=== PATIENT | male | born 1950 ===

== ENCOUNTER 2021-04-23 05:48 | Observation (INO) ==
[2021-04-23] MEDS ORDERED: Buffered Lidocaine 1% SYRIN 1 ml INTRADERM ONE (06:00)
[2021-04-23] MEDS ORDERED: Lactated Ringers 1000 ml BAG 1,000 ML IV SCH (06:00)
[2021-04-23] MEDS ORDERED: ceFAZolin 1 GM ADVAN 1 GM ADDV.VIAL IVPB ONE (06:15)
[2021-04-23 06:44] LABS: ABS Lymphocytes 2.1 10^3/ul (1.0-4.8); ABS Monocytes 0.8 10^3/ul (0-0.8); ABS Neutrophils 4.5 10^3/ul (1.5-7.7); Activated Partial Thrombo Time 33.8 seconds (26.0-38.0); Eosinophil % 0.3 %; Hematocrit 50 % (42-52); Hemoglobin 16.6 g/dL (14.0-18.0); INR 1.24 (0.86-1.15); Lymphocyte % 27.7 %; Mean Corpuscular HGB Conc 33 g/dL (31-36); Mean Corpuscular Hemoglobin 30 pg (27-31); Mean Corpuscular Volume 89 fL (80-94); Mean Platelet Volume 5.9 fL (7.4-10.4); Nucleated Red Blood Cells % 0.1; Platelet Count 342 10^3/uL (150-450); Red Blood Count 5.63 10^6 /uL (4.18-5.48); Red Cell Distribution Width 14 % (10-15); White Blood Count 7.4 10^3/uL (3.5-10.8)
[2021-04-23 06:48] LABS: Albumin 4.3 g/dL (3.2-5.2); Albumin/Globulin Ratio 1.2 (1-3); Calcium 9.8 mg/dL (8.6-10.3); Globulin 3.6 g/dL (2-4); Potassium 4.2 mmol/L (3.5-5.0); Total Bilirubin 0.5 mg/dL (0.2-1.0); Total Protein 7.9 g/dL (6.4-8.9); eGFR CKD-EPI 62.1 (>60)
[2021-04-23] MEDS ORDERED: Dexamethasone IV 4 MG/ML VIAL 1 ml VIAL ONE (07:07)
[2021-04-23] MEDS ORDERED: Midazolam 2 mg/2 ml VIAL 1 mg/ml 2 ml VIAL (2 mg) ONE (07:07)
[2021-04-23] MEDS ORDERED: Lidocaine 2% PF 5 ML VIAL ONE (07:07)
[2021-04-23] MEDS ORDERED: Rocuronium 50 mg VIAL 10 mg/ml 5 ml VIAL (50 mg) ONE (07:07)
[2021-04-23] MEDS ORDERED: Bupivacaine 0.5% W/EPI SDV 10 ML VIAL INJ ONE ×2 (07:07)
[2021-04-23] MEDS ORDERED: Vancomycin 1,000 MG VIAL ONE (07:07)
[2021-04-23] MEDS ORDERED: Ondansetron 4 mg VIAL 2 MG/ML 2 ml VIAL ONE (07:07)
[2021-04-23] MEDS ORDERED: fentaNYL 100 mcg/2 ml 50 MCG/ML VIAL ONE (07:07)
[2021-04-23] MEDS ORDERED: Propofol 10 MG/ML 20 ML BTL ONE ×3 (07:07→07:17)
[2021-04-23] MEDS ORDERED: Morphine PF AMP (0.5MG/ML) 5 MG/10 ML AMP ONE (07:17)
[2021-04-23] MEDS ORDERED: Sevoflurane BOTTLE ONE (08:14)
[2021-04-23] MEDS ORDERED: EPHEDrine (Pressors) 50 MG/ML VIAL ONE ×2 (08:24→08:31)
[2021-04-23] MEDS ORDERED: Ondansetron 4 mg VIAL 2 MG/ML 2 ml VIAL IV PRN ×2 (09:00→12:06)
[2021-04-23] MEDS ORDERED: DiMENhydriNATE IV 50 mg/ml 1 ml VIAL IV PUSH PRN (09:00)
[2021-04-23] MEDS ORDERED: HYDROcodone/ACETAMIN 5/325 mg TAB PO PRN (09:00)
[2021-04-23] MEDS ORDERED: Glycopyrrolate IV 0.2 MG/ML 1 ML VIAL ONE (10:03)
[2021-04-23] MEDS ORDERED: Acetaminophen IV 1 GM/100ML 100 ML IV ONE (10:34)
[2021-04-23] MEDS ORDERED: Magnesium Hydroxide LIQ 30 ML UDC PO PRN (12:06)
[2021-04-23] MEDS ORDERED: diPHENhydraMINE IV 50 MG/ML 1 ml VIAL (BENADRYL) IV PRN (12:06)
[2021-04-23] MEDS ORDERED: diPHENhydraMINE 25 mg TAB PO PRN (12:06)
[2021-04-23] MEDS ORDERED: Ondansetron ODT 4 mg TAB 4 MG TAB PO PRN (12:06)
[2021-04-23] MEDS ORDERED: Lactulose 30 ml UDC PO PRN (12:06)
[2021-04-23] MEDS ORDERED: Naloxone 0.4 mg VIAL 0.4 mg/ml 1 ml VIAL IV PRN (12:30)
[2021-04-23] MEDS: Lactated Ringers 1000 ml BAG 1,000 ML IV SCH ×2 (13:30→23:40)
[2021-04-23] MEDS ORDERED: oxyCODONE/Acetamin 5/325 mg TAB PO PRN (15:13)
[2021-04-23] MEDS: ceFAZolin 1 GM ADVAN 1 GM in NS 0.9% 50 ML 50 ML IVPB SCH ×2 (16:01→23:41)
[2021-04-23] MEDS: Magnesium Hydroxide LIQ 30 ML UDC PO SCH (21:27)
[2021-04-23] MEDS: DULoxetine DR 60 mg CAP PO SCH (21:28)
[2021-04-24 05:59] LABS: Hematocrit 34 % (42-52); Hemoglobin 11.5 g/dL (14.0-18.0); Platelet Count 265 10^3/uL (150-450)
[2021-04-24 06:11] LABS: Calcium 8.4 mg/dL (8.6-10.3); eGFR CKD-EPI 59.8 (>60)
[2021-04-24 06:12] LABS: Potassium 5.3 mmol/L (3.5-5.0)
[2021-04-24] MEDS: ceFAZolin 1 GM ADVAN 1 GM in NS 0.9% 50 ML 50 ML IVPB SCH (07:55)
[2021-04-24] MEDS: Magnesium Hydroxide LIQ 30 ML UDC PO SCH ×2 (08:28→20:59)
[2021-04-24] MEDS: Vitamin THERAPEUTIC TAB PO SCH (08:33)
[2021-04-24] MEDS ORDERED: Lactated Ringers 1000 ml BAG 1,000 ML IV ONE (09:17)
[2021-04-24 09:28] LABS: Hematocrit 34 % (42-52); Hemoglobin 11.2 g/dL (14.0-18.0); Mean Corpuscular HGB Conc 33 g/dL (31-36); Mean Corpuscular Hemoglobin 29 pg (27-31); Mean Corpuscular Volume 88 fL (80-94); Platelet Count 274 10^3/uL (150-450); Red Blood Count 3.83 10^6 /uL (4.18-5.48); Red Cell Distribution Width 14 % (10-15); White Blood Count 10.6 10^3/uL (3.5-10.8)
[2021-04-24 09:45] LABS: Albumin 3.2 g/dL (3.2-5.2); Albumin/Globulin Ratio 1.2 (1-3); Calcium 8.4 mg/dL (8.6-10.3); Globulin 2.6 g/dL (2-4); Magnesium 1.9 mg/dL (1.9-2.7); Phosphorus 2.2 mg/dL (2.5-5.0); Potassium 4.3 mmol/L (3.5-5.0); Total Bilirubin 0.5 mg/dL (0.2-1.0); Total Protein 5.8 g/dL (6.4-8.9); eGFR CKD-EPI 65.9 (>60)
[2021-04-24 10:26] LABS: TSH Ultra Thyroid Stim Horm 1.41 mcIU/mL (0.34-5.60)
[2021-04-24 10:32] LABS: Prolactin 9.2 ng/mL (1.0-20.0)
[2021-04-24 11:03] LABS: ABS Lymphocytes 1.7 10^3/ul (1.0-4.8); ABS Monocytes 1.9 10^3/ul (0-0.8); Eosinophil % 0.1 %; Nucleated Red Blood Cells % 0.1
[2021-04-24] MEDS ORDERED: Cyanocobalamin INJ 1,000 MCG/ML VIAL 1 ML VIAL IM ONE (11:18)
[2021-04-24] MEDS: Lactated Ringers 1000 ml BAG 1,000 ML IV SCH ×2 (11:54→22:42)
[2021-04-24 12:17] LABS: Calcium 8.7 mg/dL (8.6-10.3); Potassium 4.6 mmol/L (3.5-5.0); eGFR CKD-EPI 70.1 (>60)
[2021-04-24] MEDS: DULoxetine DR 60 mg CAP PO SCH (20:59)
[2021-04-25 06:17] LABS: Hematocrit 31 % (42-52); Hemoglobin 10.1 g/dL (14.0-18.0); Platelet Count 245 10^3/uL (150-450)
[2021-04-25 08:30] LABS: ALT 15 U/L (7-52); AST 43 U/L (13-39); Albumin 3.1 g/dL (3.2-5.2); Albumin/Globulin Ratio 1.1 (1-3); Alkaline Phosphatase 50 U/L (35-149); Blood Urea Nitrogen 13 mg/dL (6-24); CO2 Carbon Dioxide 32 mmol/L (22-32); Calcium 8.6 mg/dL (8.6-10.3); Chloride 100 mmol/L (101-111); Globulin 2.8 g/dL (2-4); Glucose 127 mg/dL (70-100); Potassium 4.9 mmol/L (3.5-5.0); Sodium 132 mmol/L (135-145); Total Protein 5.9 g/dL (6.4-8.9); eGFR CKD-EPI 77.3 (>60)
[2021-04-25] MEDS ORDERED: Iohexol 350 (CONTRAST) 500 ML MDV IV ONE (08:47)
[2021-04-25] MEDS: Magnesium Hydroxide LIQ 30 ML UDC PO SCH (09:58)
[2021-04-25] MEDS: Lactated Ringers 1000 ml BAG 1,000 ML IV SCH (09:58)
[2021-04-25] MEDS: Vitamin THERAPEUTIC TAB PO SCH (09:59)
[2021-04-25 16:04] LABS: Rapid COVID-19 Molecular Undetected (Undetected)
[2021-04-25 19:54] VITALS: BP 97/61
== END 2021-04-25 20:20 ==
LOC: INTOOBSV 05:48 → AA 05:48 → SSU 13:21
PROVIDERS: ADMIT Orthopaedic Surgery; ATTEND Orthopaedic Surgery Adult Reconstructive Orthopaedic Surgery